=== PATIENT | male | born 1940 | race Caucasian/White ===

== ENCOUNTER 2020-12-21 09:44 | Inpatient (IN) ==
[2020-12-21] MEDS: Apixaban 2.5 MG TABLET PO SCH (19:49)
[2020-12-21] MEDS: QUEtiapine Fumarate 25 MG TABLET PO SCH (19:50)
[2020-12-21] MEDS: Ranolazine 500 MG TAB.ER.12H PO SCH (19:52)
[2020-12-21] MEDS: traZODone 50 MG TABLET PO SCH (19:52)
[2020-12-21] MEDS: Melatonin 3 MG TABLET PO SCH (19:53)
[2020-12-21] MEDS: *HR* Amiodarone 200 MG TABLET PO SCH (19:55)
[2020-12-22 04:47] LABS: Basophils % 0.3 %; Eosinophils # 0.3 K/mcL (0.0-0.6); Eosinophils % 4.6 %; Hematocrit 26.9 % (37.5-50.1); Hemoglobin 8.3 g/dL (12.9-16.9); Immature Granulocytes % 0.3 % (0-4); Lymphocytes # 1.5 K/mcL (0.6-4.6); Lymphocytes % 20.9 %; Mean Corpuscular HGB Conc 30.9 g/dL (31.6-35.5); Mean Corpuscular Hemoglobin 29.9 pg (28.0-33.3); Mean Corpuscular Volume 96.8 fL (83.0-100.0); Mean Platelet Volume 10.7 fL (9.4-12.4); Monocytes % 13.4 %; Neutrophils # 4.4 K/mcL (1.6-8.9); Platelet Count 162 K/mcL (140-400); Red Blood Count 2.78 M/mcL (4.19-5.50); Red Cell Distribution Width 14.2 % (11.5-14.5); Segmented Neutrophils % 60.5 %; White Blood Count 7.2 K/mcL (4.3-11.1)
[2020-12-22 05:03] LABS: BUN/Creatinine Ratio 15 (6-26); Blood Urea Nitrogen 18 mg/dL (8-23); Calcium 8.5 mg/dL (8.6-10.3); Carbon Dioxide 25 mEq/L (23-29); Chloride 102 mEq/L (98-107); Glucose 95 mg/dL (70-105); Osmolality,Calculated 278 (280-300); Potassium 4.3 mEq/L (3.5-5.1); Sodium 133 mEq/L (136-145); eGFR For African Americans > 60 (> 60); eGFR For Non-African Americans 57 (> 60)
[2020-12-22] MEDS: Aspirin Enteric Coated 81 MG Tablet PO SCH (08:18)
[2020-12-22] MEDS: *HR* Amiodarone 200 MG TABLET PO SCH ×2 (08:19→21:11)
[2020-12-22] MEDS: Ranolazine 500 MG TAB.ER.12H PO SCH ×2 (08:19→21:09)
[2020-12-22] MEDS: Apixaban 2.5 MG TABLET PO SCH ×2 (08:20→21:12)
[2020-12-22] MEDS: Melatonin 3 MG TABLET PO SCH (21:09)
[2020-12-22] MEDS: traZODone 50 MG TABLET PO SCH (21:10)
[2020-12-22] MEDS: QUEtiapine Fumarate 25 MG TABLET PO SCH (21:10)
[2020-12-23] MEDS: Ranolazine 500 MG TAB.ER.12H PO SCH ×2 (09:02→20:40)
[2020-12-23] MEDS: *HR* Amiodarone 200 MG TABLET PO SCH ×2 (09:02→20:40)
[2020-12-23] MEDS: Aspirin Enteric Coated 81 MG Tablet PO SCH (09:04)
[2020-12-23] MEDS: Apixaban 2.5 MG TABLET PO SCH ×2 (09:04→20:38)
[2020-12-23] MEDS: traZODone 50 MG TABLET PO SCH (20:38)
[2020-12-23] MEDS: Melatonin 3 MG TABLET PO SCH (20:39)
[2020-12-23] MEDS: QUEtiapine Fumarate 25 MG TABLET PO SCH (20:39)
[2020-12-24 06:09] LABS: Hematocrit 28.1 % (37.5-50.1); Hemoglobin 8.6 g/dL (12.9-16.9); Mean Corpuscular HGB Conc 30.6 g/dL (31.6-35.5); Mean Corpuscular Hemoglobin 29.7 pg (28.0-33.3); Mean Corpuscular Volume 96.9 fL (83.0-100.0); Platelet Count 158 K/mcL (140-400); Red Cell Distribution Width 13.7 % (11.5-14.5)
[2020-12-24 06:35] LABS: Alanine Aminotransferase 14 Units/L (7-52); Albumin 2.9 g/dL (3.5-5.7); Albumin/Globulin Ratio 0.8 (1.1-2.2); Alkaline Phosphatase 118 Units/L (34-104); Aspartate Amino Transferase 25 Units/L (13-39); BUN/Creatinine Ratio 12 (6-26); Blood Urea Nitrogen 15 mg/dL (8-23); Calcium 8.4 mg/dL (8.6-10.3); Carbon Dioxide 28 mEq/L (23-29); Chloride 101 mEq/L (98-107); Globulin 3.6 g/dL (2.4-3.5); Glucose 100 mg/dL (70-105); Magnesium 1.8 mg/dL (1.6-2.6); Osmolality,Calculated 279 (280-300); Potassium 4.1 mEq/L (3.5-5.1); Sodium 134 mEq/L (136-145); Total Protein 6.5 g/dL (6.4-8.9); eGFR For African Americans > 60 (> 60); eGFR For Non-African Americans 53 (> 60)
[2020-12-24] MEDS: Aspirin Enteric Coated 81 MG Tablet PO SCH (09:23)
[2020-12-24] MEDS: Apixaban 2.5 MG TABLET PO SCH ×2 (09:24→20:51)
[2020-12-24] MEDS: *HR* Amiodarone 200 MG TABLET PO SCH ×2 (09:24→20:52)
[2020-12-24] MEDS: Ranolazine 500 MG TAB.ER.12H PO SCH ×2 (09:24→20:52)
[2020-12-24] MEDS: Melatonin 3 MG TABLET PO SCH (20:50)
[2020-12-24] MEDS: QUEtiapine Fumarate 25 MG TABLET PO SCH (20:51)
[2020-12-24] MEDS: traZODone 50 MG TABLET PO SCH (20:52)
[2020-12-25] MEDS: Acetaminophen 325 MG TABLET PO PRN (00:29)
[2020-12-25 07:24] LABS: Basophils % 0.4 %; Eosinophils # 0.3 K/mcL (0.0-0.6); Eosinophils % 6.3 %; Hematocrit 28.3 % (37.5-50.1); Hemoglobin 8.7 g/dL (12.9-16.9); Immature Granulocytes % 0.2 % (0-4); Lymphocytes # 1.3 K/mcL (0.6-4.6); Lymphocytes % 24.4 %; Mean Corpuscular HGB Conc 30.7 g/dL (31.6-35.5); Mean Corpuscular Hemoglobin 29.6 pg (28.0-33.3); Mean Corpuscular Volume 96.3 fL (83.0-100.0); Mean Platelet Volume 10.1 fL (9.4-12.4); Monocytes # 0.7 K/mcL (0.0-1.3); Monocytes % 12.5 %; Platelet Count 154 K/mcL (140-400); Red Blood Count 2.94 M/mcL (4.19-5.50); Red Cell Distribution Width 13.7 % (11.5-14.5); Segmented Neutrophils % 56.2 %; White Blood Count 5.3 K/mcL (4.3-11.1)
[2020-12-25 07:45] LABS: BUN/Creatinine Ratio 12 (6-26); Blood Urea Nitrogen 15 mg/dL (8-23); Calcium 8.4 mg/dL (8.6-10.3); Carbon Dioxide 27 mEq/L (23-29); Chloride 101 mEq/L (98-107); Glucose 102 mg/dL (70-105); Osmolality,Calculated 279 (280-300); Sodium 134 mEq/L (136-145); eGFR For African Americans > 60 (> 60); eGFR For Non-African Americans 57 (> 60)
[2020-12-25] MEDS: Ranolazine 500 MG TAB.ER.12H PO SCH ×2 (08:23→20:40)
[2020-12-25] MEDS: Apixaban 2.5 MG TABLET PO SCH ×2 (08:23→20:39)
[2020-12-25] MEDS: Aspirin Enteric Coated 81 MG Tablet PO SCH (08:23)
[2020-12-25] MEDS: *HR* Amiodarone 200 MG TABLET PO SCH ×2 (08:24→20:39)
[2020-12-25] MEDS: Melatonin 3 MG TABLET PO SCH (20:38)
[2020-12-25] MEDS: traZODone 50 MG TABLET PO SCH (20:38)
[2020-12-25] MEDS: QUEtiapine Fumarate 25 MG TABLET PO SCH (20:40)
[2020-12-25] MEDS: polyethylene glycoL 3350 17 GM POWD.PACK PO SCH (20:41)
[2020-12-26] MEDS: Apixaban 2.5 MG TABLET PO SCH ×2 (08:49→19:57)
[2020-12-26] MEDS: *HR* Amiodarone 200 MG TABLET PO SCH ×2 (08:49→19:58)
[2020-12-26] MEDS: Aspirin Enteric Coated 81 MG Tablet PO SCH (08:49)
[2020-12-26] MEDS: Ranolazine 500 MG TAB.ER.12H PO SCH ×2 (08:50→19:56)
[2020-12-26] MEDS: polyethylene glycoL 3350 17 GM POWD.PACK PO SCH ×2 (08:50→20:03)
[2020-12-26] MEDS: QUEtiapine Fumarate 25 MG TABLET PO SCH (19:56)
[2020-12-26] MEDS: Melatonin 3 MG TABLET PO SCH (19:57)
[2020-12-26] MEDS: traZODone 50 MG TABLET PO SCH (19:57)
[2020-12-27] MEDS: *HR* Amiodarone 200 MG TABLET PO SCH ×2 (08:36→21:38)
[2020-12-27] MEDS: Aspirin Enteric Coated 81 MG Tablet PO SCH (08:36)
[2020-12-27] MEDS: Ranolazine 500 MG TAB.ER.12H PO SCH ×2 (08:37→21:38)
[2020-12-27] MEDS: Apixaban 2.5 MG TABLET PO SCH ×2 (08:37→21:37)
[2020-12-27] MEDS: polyethylene glycoL 3350 17 GM POWD.PACK PO SCH ×2 (08:42→21:36)
[2020-12-27] MEDS ORDERED: Saliva Stimulant 44.3ml BOTTLE PO PRN (13:32)
[2020-12-27] MEDS: QUEtiapine Fumarate 25 MG TABLET PO SCH (21:36)
[2020-12-27] MEDS: Melatonin 3 MG TABLET PO SCH (21:36)
[2020-12-27] MEDS: traZODone 50 MG TABLET PO SCH (21:36)
[2020-12-28] MEDS: Acetaminophen 325 MG TABLET PO PRN (01:00)
[2020-12-28] MEDS: polyethylene glycoL 3350 17 GM POWD.PACK PO SCH ×2 (08:32→20:26)
[2020-12-28] MEDS: Apixaban 2.5 MG TABLET PO SCH ×2 (08:33→20:21)
[2020-12-28] MEDS: Aspirin Enteric Coated 81 MG Tablet PO SCH (08:33)
[2020-12-28] MEDS: *HR* Amiodarone 200 MG TABLET PO SCH ×2 (08:33→20:21)
[2020-12-28] MEDS: Ranolazine 500 MG TAB.ER.12H PO SCH ×2 (08:33→20:20)
[2020-12-28] MEDS: Sennosides 8.6 MG TABLET PO SCH ×2 (13:02→20:22)
[2020-12-28] MEDS: Melatonin 3 MG TABLET PO SCH (20:21)
[2020-12-28] MEDS: traZODone 50 MG TABLET PO SCH (20:22)
[2020-12-28] MEDS: QUEtiapine Fumarate 25 MG TABLET PO SCH (20:23)
[2020-12-29] MEDS: Aspirin Enteric Coated 81 MG Tablet PO SCH (08:17)
[2020-12-29] MEDS: Apixaban 2.5 MG TABLET PO SCH ×2 (08:17→21:30)
[2020-12-29] MEDS: Sennosides 8.6 MG TABLET PO SCH ×2 (08:17→21:32)
[2020-12-29] MEDS: *HR* Amiodarone 200 MG TABLET PO SCH ×2 (08:17→21:29)
[2020-12-29] MEDS: polyethylene glycoL 3350 17 GM POWD.PACK PO SCH ×2 (08:18→21:37)
[2020-12-29] MEDS: Ranolazine 500 MG TAB.ER.12H PO SCH ×2 (08:18→21:31)
[2020-12-29] MEDS ORDERED: Bisacodyl 10 MG RECTAL SUPPOSITORY RC PRN (08:38)
[2020-12-29] MEDS ORDERED: Lactulose Oral Soln 20 GM/30 ML UDC PO PRN (08:38)
[2020-12-29] MEDS: Ondansetron ODT 4 MG TAB.RAPDIS SL PRN (14:22)
[2020-12-29] MEDS: Melatonin 3 MG TABLET PO SCH (21:31)
[2020-12-29] MEDS: traZODone 50 MG TABLET PO SCH (21:32)
[2020-12-29] MEDS: QUEtiapine Fumarate 25 MG TABLET PO SCH (21:32)
[2020-12-30] MEDS: Aspirin Enteric Coated 81 MG Tablet PO SCH (08:34)
[2020-12-30] MEDS: polyethylene glycoL 3350 17 GM POWD.PACK PO SCH ×2 (08:34→20:42)
[2020-12-30] MEDS: Apixaban 2.5 MG TABLET PO SCH ×2 (08:35→20:40)
[2020-12-30] MEDS: Sennosides 8.6 MG TABLET PO SCH ×2 (08:35→20:40)
[2020-12-30] MEDS: *HR* Amiodarone 200 MG TABLET PO SCH ×2 (08:35→20:40)
[2020-12-30] MEDS: Ranolazine 500 MG TAB.ER.12H PO SCH ×2 (08:35→20:38)
[2020-12-30] MEDS: Melatonin 3 MG TABLET PO SCH (20:39)
[2020-12-30] MEDS: traZODone 50 MG TABLET PO SCH (20:40)
[2020-12-30] MEDS: QUEtiapine Fumarate 25 MG TABLET PO SCH (20:40)
[2020-12-31 06:28] LABS: Hematocrit 28.9 % (37.5-50.1); Mean Corpuscular HGB Conc 31.1 g/dL (31.6-35.5); Mean Corpuscular Hemoglobin 29.8 pg (28.0-33.3); Mean Corpuscular Volume 95.7 fL (83.0-100.0); Mean Platelet Volume 10.5 fL (9.4-12.4); Platelet Count 151 K/mcL (140-400); Red Blood Count 3.02 M/mcL (4.19-5.50); Red Cell Distribution Width 13.9 % (11.5-14.5); White Blood Count 6.4 K/mcL (4.3-11.1)
[2020-12-31 06:57] LABS: Alanine Aminotransferase 10 Units/L (7-52); Albumin 2.9 g/dL (3.5-5.7); Albumin/Globulin Ratio 0.8 (1.1-2.2); Alkaline Phosphatase 101 Units/L (34-104); Aspartate Amino Transferase 19 Units/L (13-39); BUN/Creatinine Ratio 14 (6-26); Bilirubin,Total 0.8 mg/dL (0.3-1.0); Blood Urea Nitrogen 18 mg/dL (8-23); Calcium 9.4 mg/dL (8.6-10.3); Carbon Dioxide 30 mEq/L (23-29); Chloride 97 mEq/L (98-107); Globulin 3.6 g/dL (2.4-3.5); Glucose 97 mg/dL (70-105); Magnesium 1.8 mg/dL (1.6-2.6); Osmolality,Calculated 278 (280-300); Potassium 4.4 mEq/L (3.5-5.1); Sodium 133 mEq/L (136-145); Total Protein 6.5 g/dL (6.4-8.9); eGFR For African Americans > 60 (> 60); eGFR For Non-African Americans 52 (> 60)
[2020-12-31] MEDS: polyethylene glycoL 3350 17 GM POWD.PACK PO SCH ×2 (08:13→20:40)
[2020-12-31] MEDS: Aspirin Enteric Coated 81 MG Tablet PO SCH (08:13)
[2020-12-31] MEDS: Sennosides 8.6 MG TABLET PO SCH ×2 (08:14→20:38)
[2020-12-31] MEDS: Ranolazine 500 MG TAB.ER.12H PO SCH ×2 (08:14→20:39)
[2020-12-31] MEDS: Apixaban 2.5 MG TABLET PO SCH ×2 (08:14→20:38)
[2020-12-31] MEDS: *HR* Amiodarone 200 MG TABLET PO SCH ×2 (08:14→20:40)
[2020-12-31] MEDS ORDERED: Famotidine 20 MG TABLET PO ONE (09:30)
[2020-12-31] MEDS: Ondansetron ODT 4 MG TAB.RAPDIS SL PRN (09:43)
[2020-12-31] MEDS: Melatonin 3 MG TABLET PO SCH (20:39)
[2020-12-31] MEDS: traZODone 50 MG TABLET PO SCH (20:39)
[2020-12-31] MEDS: QUEtiapine Fumarate 25 MG TABLET PO SCH (20:39)
[2021-01-01] MEDS: Ranolazine 500 MG TAB.ER.12H PO SCH ×2 (08:34→20:37)
[2021-01-01] MEDS: polyethylene glycoL 3350 17 GM POWD.PACK PO SCH ×2 (08:34→20:41)
[2021-01-01] MEDS: Sennosides 8.6 MG TABLET PO SCH ×2 (08:35→20:38)
[2021-01-01] MEDS: Apixaban 2.5 MG TABLET PO SCH ×2 (08:35→20:38)
[2021-01-01] MEDS: Aspirin Enteric Coated 81 MG Tablet PO SCH (08:36)
[2021-01-01] MEDS: *HR* Amiodarone 200 MG TABLET PO SCH ×2 (08:36→20:36)
[2021-01-01] MEDS: Melatonin 3 MG TABLET PO SCH (20:36)
[2021-01-01] MEDS: traZODone 50 MG TABLET PO SCH (20:37)
[2021-01-01] MEDS: QUEtiapine Fumarate 25 MG TABLET PO SCH (20:37)
[2021-01-02] MEDS: *HR* Amiodarone 200 MG TABLET PO SCH ×2 (09:05→20:09)
[2021-01-02] MEDS: Aspirin Enteric Coated 81 MG Tablet PO SCH (09:05)
[2021-01-02] MEDS: Ranolazine 500 MG TAB.ER.12H PO SCH ×2 (09:05→20:09)
[2021-01-02] MEDS: Apixaban 2.5 MG TABLET PO SCH ×2 (09:05→20:09)
[2021-01-02] MEDS: polyethylene glycoL 3350 17 GM POWD.PACK PO SCH ×2 (09:05→20:08)
[2021-01-02] MEDS: Sennosides 8.6 MG TABLET PO SCH ×2 (09:05→20:09)
[2021-01-02] MEDS: QUEtiapine Fumarate 25 MG TABLET PO SCH (20:08)
[2021-01-02] MEDS: traZODone 50 MG TABLET PO SCH (20:09)
[2021-01-02] MEDS: Melatonin 3 MG TABLET PO SCH (20:09)
[2021-01-03] MEDS: Ondansetron ODT 4 MG TAB.RAPDIS SL PRN ×2 (08:56→14:07)
[2021-01-03] MEDS: Apixaban 2.5 MG TABLET PO SCH ×2 (08:58→20:47)
[2021-01-03] MEDS: *HR* Amiodarone 200 MG TABLET PO SCH ×2 (08:58→20:47)
[2021-01-03] MEDS: Sennosides 8.6 MG TABLET PO SCH ×2 (08:58→20:47)
[2021-01-03] MEDS: Ranolazine 500 MG TAB.ER.12H PO SCH ×2 (08:58→20:47)
[2021-01-03] MEDS: Aspirin Enteric Coated 81 MG Tablet PO SCH (08:58)
[2021-01-03] MEDS: polyethylene glycoL 3350 17 GM POWD.PACK PO SCH ×2 (08:59→20:48)
[2021-01-03] MEDS ORDERED: 0.9 % Sodium Chloride 1,000 ML IVC SCH (16:45)
[2021-01-03 16:56] LABS: Basophils % 0.3 %; Eosinophils # 0.2 K/mcL (0.0-0.6); Eosinophils % 2.9 %; Hematocrit 31.5 % (37.5-50.1); Hemoglobin 9.8 g/dL (12.9-16.9); Immature Granulocytes % 0.3 % (0-4); Lymphocytes # 1.3 K/mcL (0.6-4.6); Lymphocytes % 18.9 %; Mean Corpuscular HGB Conc 31.1 g/dL (31.6-35.5); Mean Corpuscular Hemoglobin 29.4 pg (28.0-33.3); Mean Corpuscular Volume 94.6 fL (83.0-100.0); Mean Platelet Volume 9.7 fL (9.4-12.4); Monocytes # 0.7 K/mcL (0.0-1.3); Monocytes % 10.6 %; Neutrophils # 4.6 K/mcL (1.6-8.9); Platelet Count 148 K/mcL (140-400); Red Blood Count 3.33 M/mcL (4.19-5.50); Red Cell Distribution Width 13.9 % (11.5-14.5); White Blood Count 6.9 K/mcL (4.3-11.1)
[2021-01-03 17:25] LABS: Albumin/Globulin Ratio 0.8 (1.1-2.2); Bilirubin,Total 0.9 mg/dL (0.3-1.0); Globulin 3.7 g/dL (2.4-3.5); Potassium 4.5 mEq/L (3.5-5.1); Total Protein 6.7 g/dL (6.4-8.9)
[2021-01-03] MEDS: QUEtiapine Fumarate 25 MG TABLET PO SCH (20:46)
[2021-01-03] MEDS: traZODone 50 MG TABLET PO SCH (20:47)
[2021-01-03] MEDS: Melatonin 3 MG TABLET PO SCH (20:47)
[2021-01-04] MEDS: Apixaban 2.5 MG TABLET PO SCH ×2 (08:00→20:29)
[2021-01-04] MEDS: Ranolazine 500 MG TAB.ER.12H PO SCH ×2 (08:00→20:29)
[2021-01-04] MEDS: Sennosides 8.6 MG TABLET PO SCH ×2 (08:00→20:29)
[2021-01-04] MEDS: *HR* Amiodarone 200 MG TABLET PO SCH ×2 (08:00→20:30)
[2021-01-04] MEDS: Aspirin Enteric Coated 81 MG Tablet PO SCH (08:00)
[2021-01-04] MEDS: polyethylene glycoL 3350 17 GM POWD.PACK PO SCH ×2 (08:02→20:27)
[2021-01-04] MEDS: Melatonin 3 MG TABLET PO SCH (20:28)
[2021-01-04] MEDS: traZODone 50 MG TABLET PO SCH (20:28)
[2021-01-04] MEDS: QUEtiapine Fumarate 25 MG TABLET PO SCH (20:30)
[2021-01-04] MEDS: Ondansetron ODT 4 MG TAB.RAPDIS SL PRN (20:31)
[2021-01-05] MEDS: Ondansetron ODT 4 MG TAB.RAPDIS SL PRN (08:38)
[2021-01-05] MEDS: polyethylene glycoL 3350 17 GM POWD.PACK PO SCH ×2 (08:38→21:26)
[2021-01-05] MEDS: *HR* Amiodarone 200 MG TABLET PO SCH ×2 (08:39→21:28)
[2021-01-05] MEDS: Apixaban 2.5 MG TABLET PO SCH ×2 (08:39→21:25)
[2021-01-05] MEDS: Aspirin Enteric Coated 81 MG Tablet PO SCH (08:40)
[2021-01-05] MEDS: Ranolazine 500 MG TAB.ER.12H PO SCH ×2 (08:40→21:27)
[2021-01-05] MEDS: Sennosides 8.6 MG TABLET PO SCH ×2 (08:40→21:26)
[2021-01-05] MEDS ORDERED: 0.9 % Sodium Chloride 1,000 ML IVC SCH (12:00)
[2021-01-05] MEDS: QUEtiapine Fumarate 25 MG TABLET PO SCH (21:26)
[2021-01-05] MEDS: traZODone 50 MG TABLET PO SCH (21:30)
[2021-01-05] MEDS: Melatonin 3 MG TABLET PO SCH (21:30)
[2021-01-06 06:04] LABS: Basophils % 0.3 %; Eosinophils # 0.3 K/mcL (0.0-0.6); Eosinophils % 3.9 %; Hematocrit 31.7 % (37.5-50.1); Hemoglobin 9.9 g/dL (12.9-16.9); Immature Granulocytes % 0.4 % (0-4); Lymphocytes # 1.7 K/mcL (0.6-4.6); Mean Corpuscular HGB Conc 31.2 g/dL (31.6-35.5); Mean Corpuscular Hemoglobin 29.9 pg (28.0-33.3); Mean Corpuscular Volume 95.8 fL (83.0-100.0); Mean Platelet Volume 9.9 fL (9.4-12.4); Monocytes # 0.8 K/mcL (0.0-1.3); Monocytes % 10.8 %; Neutrophils # 4.4 K/mcL (1.6-8.9); Platelet Count 137 K/mcL (140-400); Red Blood Count 3.31 M/mcL (4.19-5.50); Red Cell Distribution Width 14.1 % (11.5-14.5); Segmented Neutrophils % 61.6 %; White Blood Count 7.2 K/mcL (4.3-11.1)
[2021-01-06 06:18] LABS: Alanine Aminotransferase 9 Units/L (7-52); Albumin/Globulin Ratio 0.9 (1.1-2.2); Alkaline Phosphatase 88 Units/L (34-104); Aspartate Amino Transferase 18 Units/L (13-39); BUN/Creatinine Ratio 13 (6-26); Bilirubin,Total 0.8 mg/dL (0.3-1.0); Blood Urea Nitrogen 15 mg/dL (8-23); Calcium 8.8 mg/dL (8.6-10.3); Carbon Dioxide 30 mEq/L (23-29); Chloride 99 mEq/L (98-107); Globulin 3.5 g/dL (2.4-3.5); Glucose 101 mg/dL (70-105); Osmolality,Calculated 279 (280-300); Potassium 4.3 mEq/L (3.5-5.1); Sodium 134 mEq/L (136-145); Total Protein 6.5 g/dL (6.4-8.9); eGFR For African Americans > 60 (> 60); eGFR For Non-African Americans 59 (> 60)
[2021-01-06] MEDS: Apixaban 2.5 MG TABLET PO SCH ×2 (08:10→17:53)
[2021-01-06] MEDS: *HR* Amiodarone 200 MG TABLET PO SCH ×2 (08:10→17:53)
[2021-01-06] MEDS: Sennosides 8.6 MG TABLET PO SCH (08:10)
[2021-01-06] MEDS: polyethylene glycoL 3350 17 GM POWD.PACK PO SCH (08:11)
[2021-01-06] MEDS: Aspirin Enteric Coated 81 MG Tablet PO SCH (08:11)
[2021-01-06] MEDS: Ranolazine 500 MG TAB.ER.12H PO SCH ×2 (08:11→17:54)
[2021-01-06] MEDS ORDERED: traZODone 50 MG TABLET PO PRN (14:24)
[2021-01-07] MEDS ORDERED: Metoprolol XL (24 HR) Succ 50 MG TAB.ER.24H PO SCH (09:00)
[2021-01-07] MEDS: Sennosides 8.6 MG TABLET PO SCH (11:00)
[2021-01-07] MEDS: Apixaban 2.5 MG TABLET PO SCH ×2 (11:01→16:09)
[2021-01-07] MEDS: Ranolazine 500 MG TAB.ER.12H PO SCH ×2 (11:01→16:09)
[2021-01-07] MEDS: Aspirin Enteric Coated 81 MG Tablet PO SCH (11:01)
[2021-01-07] MEDS: polyethylene glycoL 3350 17 GM POWD.PACK PO SCH (11:01)
[2021-01-07] MEDS: *HR* Amiodarone 200 MG TABLET PO SCH ×2 (11:01→16:09)
[2021-01-07] MEDS: Ondansetron ODT 4 MG TAB.RAPDIS SL PRN (12:21)
[2021-01-07] MEDS ORDERED: 0.9 % Sodium Chloride 1,000 ML IVC SCH (14:15)
[2021-01-07] MEDS: Melatonin 3 MG TABLET PO PRN (21:12)
[2021-01-08 07:58] LABS: Basophils % 0.3 %; Eosinophils # 0.3 K/mcL (0.0-0.6); Eosinophils % 3.7 %; Hematocrit 30.2 % (37.5-50.1); Hemoglobin 9.4 g/dL (12.9-16.9); Immature Granulocytes % 0.4 % (0-4); Lymphocytes # 1.6 K/mcL (0.6-4.6); Lymphocytes % 23.8 %; Mean Corpuscular HGB Conc 31.1 g/dL (31.6-35.5); Mean Corpuscular Hemoglobin 29.5 pg (28.0-33.3); Mean Corpuscular Volume 94.7 fL (83.0-100.0); Mean Platelet Volume 9.7 fL (9.4-12.4); Monocytes # 0.7 K/mcL (0.0-1.3); Neutrophils # 4.1 K/mcL (1.6-8.9); Platelet Count 137 K/mcL (140-400); Red Blood Count 3.19 M/mcL (4.19-5.50); Red Cell Distribution Width 14.1 % (11.5-14.5); Segmented Neutrophils % 61.8 %; White Blood Count 6.7 K/mcL (4.3-11.1)
[2021-01-08 08:21] LABS: BUN/Creatinine Ratio 14 (6-26); Blood Urea Nitrogen 16 mg/dL (8-23); Calcium 8.8 mg/dL (8.6-10.3); Carbon Dioxide 27 mEq/L (23-29); Chloride 97 mEq/L (98-107); Potassium 4.2 mEq/L (3.5-5.1); Sodium 131 mEq/L (136-145); eGFR For African Americans > 60 (> 60); eGFR For Non-African Americans > 60 (> 60)
[2021-01-08 08:24] LABS: Glucose 112 mg/dL (70-105); Osmolality,Calculated 274 (280-300)
[2021-01-08] MEDS: Ranolazine 500 MG TAB.ER.12H PO SCH ×2 (09:10→15:32)
[2021-01-08] MEDS: Sennosides 8.6 MG TABLET PO SCH (09:10)
[2021-01-08] MEDS: Aspirin Enteric Coated 81 MG Tablet PO SCH (09:11)
[2021-01-08] MEDS: Metoprolol XL (24 HR) Succ 25 MG TAB.ER.24H PO SCH (09:11)
[2021-01-08] MEDS: Apixaban 2.5 MG TABLET PO SCH ×2 (09:11→15:32)
[2021-01-08] MEDS: polyethylene glycoL 3350 17 GM POWD.PACK PO SCH (09:12)
[2021-01-08] MEDS: *HR* Amiodarone 200 MG TABLET PO SCH ×2 (09:12→15:33)
[2021-01-08] MEDS: Ondansetron ODT 4 MG TAB.RAPDIS SL PRN (15:32)
[2021-01-08] MEDS: Melatonin 3 MG TABLET PO PRN (20:27)
[2021-01-09] MEDS: Ranolazine 500 MG TAB.ER.12H PO SCH ×2 (09:06→16:21)
[2021-01-09] MEDS: Apixaban 2.5 MG TABLET PO SCH ×2 (09:07→16:23)
[2021-01-09] MEDS: *HR* Amiodarone 200 MG TABLET PO SCH (09:07)
[2021-01-09] MEDS: Aspirin Enteric Coated 81 MG Tablet PO SCH (09:08)
[2021-01-09] MEDS: polyethylene glycoL 3350 17 GM POWD.PACK PO SCH ×2 (09:08→16:21)
[2021-01-09] MEDS: Sennosides 8.6 MG TABLET PO SCH (09:08)
[2021-01-09] MEDS: Metoprolol XL (24 HR) Succ 25 MG TAB.ER.24H PO SCH (09:08)
[2021-01-09] MEDS: Acetaminophen 325 MG TABLET PO PRN (09:08)
[2021-01-09] MEDS: Ondansetron ODT 4 MG TAB.RAPDIS SL PRN (09:14)
[2021-01-09 12:15] LABS: Basophils % 0.4 %; Eosinophils # 0.2 K/mcL (0.0-0.6); Eosinophils % 2.2 %; Immature Granulocytes % 0.1 % (0-4); Lymphocytes # 1.5 K/mcL (0.6-4.6); Lymphocytes % 22.2 %; Mean Corpuscular HGB Conc 31.3 g/dL (31.6-35.5); Mean Corpuscular Hemoglobin 29.8 pg (28.0-33.3); Mean Corpuscular Volume 95.2 fL (83.0-100.0); Mean Platelet Volume 9.9 fL (9.4-12.4); Monocytes # 0.7 K/mcL (0.0-1.3); Monocytes % 9.6 %; Neutrophils # 4.4 K/mcL (1.6-8.9); Platelet Count 155 K/mcL (140-400); Red Blood Count 3.36 M/mcL (4.19-5.50); Red Cell Distribution Width 14.3 % (11.5-14.5); Segmented Neutrophils % 65.5 %; White Blood Count 6.8 K/mcL (4.3-11.1)
[2021-01-09 12:29] LABS: Alanine Aminotransferase 9 Units/L (7-52); Albumin 3.3 g/dL (3.5-5.7); Albumin/Globulin Ratio 0.9 (1.1-2.2); Alkaline Phosphatase 89 Units/L (34-104); Aspartate Amino Transferase 20 Units/L (13-39); BUN/Creatinine Ratio 13 (6-26); Bilirubin,Total 0.8 mg/dL (0.3-1.0); Blood Urea Nitrogen 15 mg/dL (8-23); Calcium 9.1 mg/dL (8.6-10.3); Carbon Dioxide 29 mEq/L (23-29); Chloride 95 mEq/L (98-107); Globulin 3.5 g/dL (2.4-3.5); Glucose 143 mg/dL (70-105); Osmolality,Calculated 271 (280-300); Potassium 4.2 mEq/L (3.5-5.1); Sodium 129 mEq/L (136-145); Total Protein 6.8 g/dL (6.4-8.9); eGFR For African Americans > 60 (> 60); eGFR For Non-African Americans > 60 (> 60)
[2021-01-09] MEDS ORDERED: 0.9 % Sodium Chloride 1,000 ML IVC SCH (13:00)
[2021-01-09] MEDS ORDERED: *HR* LORazepam 0.5 MG TABLET PO ONE (18:42)
[2021-01-09] MEDS: Melatonin 3 MG TABLET PO PRN (20:10)
[2021-01-10] MEDS: Metoprolol XL (24 HR) Succ 25 MG TAB.ER.24H PO SCH (08:19)
[2021-01-10] MEDS: Apixaban 2.5 MG TABLET PO SCH ×2 (08:20→16:48)
[2021-01-10] MEDS: Ranolazine 500 MG TAB.ER.12H PO SCH ×2 (08:20→16:48)
[2021-01-10] MEDS: Aspirin Enteric Coated 81 MG Tablet PO SCH (08:20)
[2021-01-10] MEDS: *HR* Amiodarone 200 MG TABLET PO SCH (08:20)
[2021-01-10] MEDS: polyethylene glycoL 3350 17 GM POWD.PACK PO SCH (08:20)
[2021-01-11 06:51] VITALS: BP 131/80; PULSE 78; RESP 16; TEMP 98.2; O2SAT 96
[2021-01-11] MEDS: Apixaban 2.5 MG TABLET PO SCH (08:31)
[2021-01-11] MEDS: *HR* Amiodarone 200 MG TABLET PO SCH (08:31)
[2021-01-11] MEDS: Ranolazine 500 MG TAB.ER.12H PO SCH (08:31)
[2021-01-11] MEDS: Aspirin Enteric Coated 81 MG Tablet PO SCH (08:31)
[2021-01-11] MEDS: polyethylene glycoL 3350 17 GM POWD.PACK PO SCH (08:31)
[2021-01-11] MEDS: Metoprolol XL (24 HR) Succ 25 MG TAB.ER.24H PO SCH (08:31)
== END 2021-01-11 14:40 | disposition home health service (06) | DRG 949 ==
LOC: INPGRE 15:58
PROVIDERS: ADMIT Family Medicine; ATTEND Family Medicine